=== PATIENT | male | born 1995 | race Caucasian/White ===

== ENCOUNTER 2017-02-03 22:05 | Emergency (ER) | payer SELFPAY ==
[2017-02-04] MEDS ORDERED: Ibuprofen 800 MG TAB ONE (00:33)
[2017-02-04] MEDS ORDERED: traMADol HCl 50 MG TAB ONE (00:33)
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
== END 2017-02-04 01:14 | disposition home or self-care (01) ==
LOC: ERS 22:05
DX: S93.401A Sprain of unspecified ligament of right ankle, initial encounter (principal); S16.1XXA Strain of muscle, fascia and tendon at neck level, initial encounter; Y04.0XXA Assault by unarmed brawl or fight, initial encounter
CPT/HCPCS: 72125

== ENCOUNTER 2021-01-09 13:32 | Emergency (ER) | payer BC ==
[2021-01-09] MEDS ORDERED: Boostrix 0.5 ML (Tdap) VIAL ONE ×2 (15:56→16:01)
== END 2021-01-09 16:28 | disposition home or self-care (01) ==
LOC: ERS 13:32
DX: S61.213A Laceration without foreign body of left middle finger without damage to nail, initial encounter (principal); W23.0XXA Caught, crushed, jammed, or pinched between moving objects, initial encounter
CPT/HCPCS: 12001; 90471; 90715